=== PATIENT | female | born 1990 | race African-American/Black ===

== ENCOUNTER 2017-04-01 00:02 | Inpatient (IN) ==
[2017-04-01] MEDS: LACTATED RINGERS 1,000 ML IV SCH ×3 (00:42→17:00)
[2017-04-01 01:33] LABS: Basophils % 0.1 % (0.0-0.8); Eosinophils # 0.1 10*3/uL (0.0-0.87); Eosinophils % 0.8 % (0.00-10.9); Hematocrit 30.2 VOL% (35.7-47.0); Hemoglobin 10.1 GM/DL (12.0-16.0); Immature Granulocytes % 0.8 %; Immature Granulocytes Absolute 0.07 #; Lymphocytes # 2.2 10*3/uL (1.4-4.0); Lymphocytes % 24.2 % (21.3-54.2); Mean Corpuscular HGB Conc 33.4 GM/DL (32-36); Mean Corpuscular Hemoglobin 29 PG (27-34); Mean Platelet Volume 10.8 FL (9.6-12.0); Monocytes # 0.7 10*3/uL (0.11-0.8); Monocytes % 7.9 % (1.7-12.7); Neutrophils % 66.2 % (38.7-73.9); Platelet Count 201 T/CUMM (130-400); Red Blood Count 3.43 MC/CUMM (3.8-5.5); Red Cell Distribution Width 14.1 % (9.3-17.3)
[2017-04-01 02:03] LABS: Alanine Aminotransferase 14 U/L (13-56); Albumin 2.5 G/DL (3.4-5.0); Alkaline Phosphatase 145 U/L (45-117); Aspartate Amino Transferase 10 U/L (0-37); Bilirubin,Total < 0.39 MG/DL (0.2-1.0); Blood Urea Nitrogen 6 MG/DL (7-18); Calcium 8.5 MG/DL (8.5-10.1); Glucose 103 MG/DL (74-106); Osmolality,Calculated 276.4 MOS/KG (273-304); Sodium 140 MMOL/L (136-145); Total Protein 5.3 G/DL (6.4-8.3)
[2017-04-01] MEDS: BUTORPHANOL 2 MG/ML VIAL IV PRN ×2 (09:32→14:03)
[2017-04-01] MEDS: PROMETHAZINE 25 MG/1 ML VIAL IM PRN ×2 (14:00→21:44)
[2017-04-01] MEDS: MEPERIDINE 50 MG/1 ML VIAL IM PRN (21:44)
[2017-04-02] MEDS: MEPERIDINE 50 MG/1 ML VIAL IM PRN (08:04)
[2017-04-02] MEDS: PROMETHAZINE 25 MG/1 ML VIAL IM PRN (08:05)
[2017-04-02] MEDS: OXYTOCIN/LR 20 UNIT/1,000 ML BAG IV SCH ×2 (10:10→20:40)
[2017-04-02] MEDS ORDERED: CITRIC ACID/SODIUM CITRATE 30 ML UDCUP PO ONE (10:34)
[2017-04-02] MEDS ORDERED: diphenhydrAMINE 50 MG/1 ML VIAL IV PRN ×2 (10:34)
[2017-04-02] MEDS ORDERED: LACTATED RINGERS 1,000 ML IV ONE (10:34)
[2017-04-02] MEDS ORDERED: fentaNYL 2 MCG/ROPIV 0.2% EPID 150 ML EPIDURAL SCH (10:34)
[2017-04-02] MEDS ORDERED: ePHEDrine 50 MG/ML AMP IV PRN (10:34)
[2017-04-02] MEDS ORDERED: FAMOTIDINE 20 MG/2 ML VIAL IV ONE (10:34)
[2017-04-02] MEDS ORDERED: hydrOXYzine HCL 25 MG/1 ML VIAL IM PRN (10:34)
[2017-04-02 14:53] LABS: Apearance,Urine CLEAR (Clear); Bacteria,Urine Occasional /HPF (Few); Bilirubin,Urine Negative (Negative); Blood, Urine Moderate mg/dL (Negative); Glucose,Urine (UA) Negative (Negative); Hyaline Casts,Urine 1 /LPF (0-3); Ketones,Urine 20 mg/dL (Negative); Mucus,Urine Occasional /LPF (Occasional); Nitrite,Urine Negative (Negative); Protein,Urine Negative; RBC,Urine 32 /HPF (0-4); Squamous Epithelial Cell,Urine Occasional /HPF (0-10); Urine Color Yellow (Yellow); Urine Specific Gravity 1.009 (1.001-1.035); Urine Urobilinogen < 2.0 EU/DL (0.2-1.0); WBC,Urine 3 /HPF (0-6)
[2017-04-02] MEDS ORDERED: miSOPROStol 200 MCG TABLET ONE (16:37)
[2017-04-02] MEDS ORDERED: LANOLIN 50% CREAM 0.3 OZ TUBE TOP PRN (16:43)
[2017-04-02] MEDS ORDERED: ONDANSETRON 4 MG/2 ML VIAL IV PRN (16:43)
[2017-04-02] MEDS ORDERED: BENZOCAINE 20%/MENTHOL 0.5% SPRAY 56 GM CAN TOP PRN (16:43)
[2017-04-02] MEDS ORDERED: RHO(D) IMMUNE GLOBULIN 300 MCG SYRINGE IM ONE (16:43)
[2017-04-02] MEDS ORDERED: HYDROCORTISONE 2.5% RECTAL CREAM 30 GM TUBE TOP PRN (16:43)
[2017-04-02] MEDS ORDERED: ACETAMINOPHEN 325 MG TABLET PO PRN (16:43)
[2017-04-02] MEDS ORDERED: IBUPROFEN 800 MG TABLET PO PRN (16:43)
[2017-04-02] MEDS ORDERED: oxyCODONE/ACETAMINOPHEN 5-325 MG TABLET PO PRN ×2 (16:43)
[2017-04-02] MEDS ORDERED: MEASLES/MUMPS/RUBELLA VACCINE 0.5 ML VIAL SUBCUT ONE (16:43)
[2017-04-02] MEDS ORDERED: DIPH/TET/ACEL PERT BOOSTER VACCINE 0.5 ML VIAL IM ONE (16:43)
[2017-04-02] MEDS ORDERED: BISACODYL 10 MG SUPP RECTAL PRN (16:43)
[2017-04-02] MEDS ORDERED: OXYTOCIN/LR 20 UNIT/1,000 ML BAG IV ONE (16:43)
[2017-04-02] MEDS ORDERED: WITCH HAZEL PADS 100/JAR TOP PRN (16:43)
[2017-04-02] MEDS: DOCUSATE SODIUM 100 MG CAPSULE PO SCH (23:51)
[2017-04-03 07:38] LABS: Basophils % 0.3 % (0.0-0.8); Eosinophils # 0.1 10*3/uL (0.0-0.87); Eosinophils % 0.6 % (0.00-10.9); Hematocrit 23.5 VOL% (35.7-47.0); Hemoglobin 7.9 GM/DL (12.0-16.0); Immature Granulocytes % 0.6 %; Immature Granulocytes Absolute 0.09 #; Lymphocytes # 2.6 10*3/uL (1.4-4.0); Lymphocytes % 17.2 % (21.3-54.2); Mean Corpuscular HGB Conc 33.6 GM/DL (32-36); Mean Corpuscular Hemoglobin 30 PG (27-34); Mean Corpuscular Volume 89.4 FL (87-102); Mean Platelet Volume 10.9 FL (9.6-12.0); Monocytes # 1.3 10*3/uL (0.11-0.8); Monocytes % 8.7 % (1.7-12.7); Neutrophils % 72.6 % (38.7-73.9); Platelet Count 175 T/CUMM (130-400); Red Blood Count 2.63 MC/CUMM (3.8-5.5); Red Cell Distribution Width 14.4 % (9.3-17.3); White Blood Count 15.2 T/CUMM (4-12)
[2017-04-03] MEDS: DOCUSATE SODIUM 100 MG CAPSULE PO SCH ×2 (09:49→21:43)
[2017-04-03] MEDS: OXYTOCIN/LR 20 UNIT/1,000 ML BAG IV SCH (20:06)
[2017-04-04] MEDS: DOCUSATE SODIUM 100 MG CAPSULE PO SCH (09:43)
[2017-04-04 13:18] VITALS: BP 122/67
== END 2017-04-04 13:05 | disposition home or self-care (01) | DRG 560 ==
LOC: N.LDOUT 00:02 → N.LD 00:03 → N.OB 04-02 20:09
PROVIDERS: ADMIT Obstetrics & Gynecology; ATTEND Obstetrics & Gynecology